=== PATIENT | male | born 1980 | race Hispanic/Latino ===

== ENCOUNTER 2021-11-16 16:54 | Emergency (ER) | payer SELFPAY ==
--- NOTE | 2021-11-16 17:10 | ED.EAR ---
HPI - Ear Problem General Chief complaint: Ear Stated complaint: ear pain Time Seen by Provider: 11/16/21 17:10 Source: patient Mode of arrival: ambulatory Limitations: no limitations History of Present Illness HPI Narrative: Mr. Poon is a 41-year-old male patient presenting to the clinic today with complaints of bilateral ear pain 3 to 4 days He reports his left ear is very tender to palpation and he is having discomfort in the right ear as well. He denies any fever or chills. Related Data Allergies Allergy/AdvReac Type Severity Reaction Status Date / Time No Known Allergies Allergy Verified 11/16/21 17:23 Review of Systems Review of Systems: Pertinent positives per HPI. Patient denies any fever, chills, rash, headache, visual changes, dizziness, cough, runny nose, sore throat, shortness of breath, chest pain, palpitations, nausea, vomiting, diarrhea, constipation, abdominal pain, or any urinary issues. PMFSH Family History Family History Mother Family history of elevated blood lipids Father Family history of elevated blood lipids Social History Social History Smoking status: Never smoker Second hand tobacco smoke exposure: No Alcohol intake: current Comments At the time of my signature, I reviewed and agree with the nursing past medical, surgical, social, and family history. There is no relevant family history pertinent to the patient complaint. Exam Narrative: General: Well-developed, well nourished, in no apparent distress Head: Normocephalic, atraumatic Eyes: Pupils equally round and reactive to light bilaterally, EOM intact, sclera and conjunctive clear, no discharge, lids normal Ears: Right TM intact, red, bulging, unable to visualize left TM due to left ear canal swelling and redness, right ear canals clear, no drainage, grossly hearing normal. Nose: Nares patent, no discharge, no inflammation, no sinus tenderness. Mouth: Oropharynx without lesions or masses, good dentition, MMM. Neck: Supple, trachea midline, no enlargement of anterior or posterior cervical nodes, no thyroid masses or goiter palpable. Cardio: Regular rate and rhythm, s1 and s2 normal, no murmur appreciated. Resp: Clear to auscultation bilaterally anteriorly and posteriorly, no rhonchi, rales, wheezing or rubs Course Course Emergency Course: Portions of this record may have been created with voice recognition software. Level of Care: Express Care Visit Vital Signs Vital signs: Vital signs reviewed Medical Decision Making MDM Narrative Medical decision making narrative: At the time of visit patient is resting comfortably on the exam table. Patient has right otitis media and left otitis externa. I will give him prescription for some ofloxacin eardrops as well as some amoxicillin. Supportive measures were discussed with the patient he voiced understanding of discharge instructions and agrees to treatment plan Differential Diagnosis Differential Diagnosis: Otitis media, otitis externa, eustachian tube dysfunction, otalgia, serous otitis Discharge Plan Discharge Clinical Impression: Acute right otitis media Acute otitis externa of left ear Qualifiers: Otitis externa type: diffuse Qualified Code(s): H60.312 - Diffuse otitis externa, left ear Patient Disposition: Home, Self-Care Condition: Stable Instructions: Antibiotic Form, Swimmer's Ear (ED), Ear Infection (ED) Additional Instructions: Ofloxacin eardrops to the left ear as directed Take amoxicillin as directed May take Tylenol/Motrin as needed for pain May apply heating pad to the left ear to help alleviate some pain Follow-up with your PCP in 3 to 5 days if symptoms persist or sooner if they worsen Prescriptions: New amoxicillin 875 mg tablet 875 mg PO Q12H Qty: 14 0RF ofloxacin 0.3 % drops 5 drp o
[2021-11-16 17:20] VITALS: BP 173/108; PULSE 98; RESP 16; TEMP 36.6; O2SAT 99
== END 2021-11-16 17:32 | disposition home or self-care (01) ==
PROVIDERS: Emergency Provider Nurse Practitioner Family; PCP Family Medicine
DX: H66.91 Otitis media, unspecified, right ear (principal); H60.312 Diffuse otitis externa, left ear
CPT/HCPCS: 99213; G0463

== ENCOUNTER 2022-10-28 13:08 | Emergency (ER) | payer MEDICAID, SELFPAY ==
[2022-10-28] VITALS (7 sets, daily range): BP systolic 127–134; BP diastolic 83–95; PULSE 78–97; RESP 16–20; TEMP 36.6; O2SAT 97–100
--- NOTE | ~2022-10-28 | XR_ITS ---
EXAMINATION: XR ankle RT min 3V DATE: 10/28/2022 15:57 INDICATION: Right ankle pain. TECHNIQUE: Anteroposterior, oblique, mortise, and lateral views of the right ankle were obtained. COMPARISON: None. FINDINGS: Old healed fractures of the distal right tibia with interfragmentary screws and anterior screw fixati on. There is also an old healed fracture at the distal right fibular metadiaphysis which without inte rnal fixation. Alignment remains near-anatomic. No acute fracture. Likely secondary mild osteoarthrit is at the right ankle. Small Achilles and plantar calcaneal spurs. Subcutaneous varicosities at the m edial aspect of the mid right calf. Soft tissues are otherwise unremarkable with no ankle joint effus ion. IMPRESSION: 1. Old healed fractures of the distal right tibia and fibula, the former with internal fixation. No a cute osseous abnormality. 2. Likely secondary mild osteoarthritis at the right ankle. Reviewed, dictated and finalized at location L. IMPRESSION: 1. Old healed fractures of the distal right tibia and fibula, the former with i nternal fixation. No acute osseous abnormality. 2. Likely secondary mild osteoarthritis at the right ankle.
--- NOTE | ~2022-10-28 | CT_ITS ---
EXAMINATION: CT abdomen pelvis w con DATE: 10/28/2022 15:30 INDICATION: Right-sided abdominal pain TECHNIQUE: Computed tomography (CT) of the abdomen and pelvis was performed with 100 mL Omnipaque-350 intravenous contrast. Automated exposure control and iterative reconstruction technique were employe d. The dose-length product was 1554.84 mGy-cm. COMPARISON: None FINDINGS: Lung bases are clear. Heart size is normal. No pericardial or pleural effusion. Mild bilateral gyneco mastia. Liver, gallbladder, spleen, pancreas, bilateral adrenal glands and kidneys are normal. Bowels including the appendix are normal. Bladder is normal. Moderate-sized fat-containing right inguinal h ernia. No free intraperitoneal gas or fluid. No pathologically enlarged abdominal or pelvic lymphaden opathy. Mild lower thoracic spondylosis. IMPRESSION: 1. Normal appendix. No acute intra-abdominal/pelvic process. 2. Moderate-sized fat-containing right inguinal hernia. Reviewed, dictated and finalized at location L.
--- NOTE | ~2022-10-28 | US_ITS ---
EXAMINATION: US venous doppler LE RT DATE: 10/28/2022 15:51 INDICATION: swelling, pain . TECHNIQUE: Grayscale images without and with compression and Doppler images of the right lower extrem ity veins were obtained. COMPARISON: None FINDINGS: The right common femoral vein, profunda (deep) femoral vein, femoral vein, popliteal vein, peroneal v ein, posterior tibial veins, gastrocnemius vein, and greater saphenous vein are patent. IMPRESSION: 1. Patent right lower extremity veins. No evidence of deep venous thrombosis. Reviewed, dictated and finalized at location K.
[2022-10-28 13:31] LABS: Basophils Percent Auto 0.7 % (0.2-1.2); Eosinophils Absolute Auto 0.1 K/mm3 (0-0.3); Eosinophils Percent Auto 1.7 % (0-4.4); Hematocrit 45.8 % (42.0-52.0); Hemoglobin 15.2 g/dL (14.0-18.0); Immature Granulocyte Absolute 0.02 K/mm3 (0.00-0.031); Immature Granulocyte Percent A 0.3 % (0-0.5); Lymphocytes Absolute Auto 2.14 K/mm3 (0.9-3.2); Lymphocytes Percent Auto 36.5 % (18.3-44.2); Mean Corpuscular HGB Conc 33.2 g/dl (32-36); Mean Corpuscular Hemoglobin 29.9 pg (26-34); Mean Corpuscular Volume 90.2 fl (80-100); Mean Platelet Volume 9.4 fl (7.4-10.4); Monocytes Absolute Auto 0.5 K/mm3 (0.1-0.6); Monocytes Percent Auto 8.2 % (2.6-8.5); Neutrophils Absolute Auto 3.1 K/mm3 (1.3-6.7); Neutrophils Percent Auto 52.6 % (45.5-73.1); Platelet Count Result 255 k/mm3 (150-375); Red Blood Count 5.08 M/mm3 (4.6-6.20); Red Cell Distribution Width 12.3 % (11.5-14.5); White Blood Count 5.9 K/mm3 (4.5-10.0)
[2022-10-28 13:43] LABS: Alanine Aminotransferase 58 U/L (6-50); Albumin Level 4.4 g/dL (3.5-5.1); Alkaline Phosphatase 64 U/L (38-126); Anion Gap 4 mmol/L (8-16); Aspartate Amino Transferase 30 U/L (17-59); Bilirubin,Total 0.5 mg/dL (0.2-1.3); Blood Urea Nitrogen 12 mg/dL (9-20); Calcium 9.3 mg/dL (8.4-10.2); Carbon Dioxide 28 mmol/L (22-30); Chloride 102 mmol/L (98-107); Estimated Glomerular Filt Rate > 60; Glucose 115 mg/dL (65-110); Lipase 94 U/L (23-300); Sodium 134 mmol/L (137-145)
[2022-10-28 13:46] LABS: Appearance Urine Clear (Clear); Bilirubin Urine Negative (Negative); Blood Urine Negative (Negative); Color Urine Yellow (Yellow); Glucose Urine UA Negative (Negative); Ketones Urine Negative (Negative); Leukocyte Esterase Ur Negative LEU/UL (Negative); Nitrate Urine Negative (Negative); Protein Urine Negative (Negative); Specific Grav Ur 1.022 (1.001-1.035); Urobilinogen Urine 0.2 mg/dL (<2.0); pH Urine 5.5 (5.0-9.0)
[2022-10-28 13:48] LABS: Add Urine Microscopic? NO
--- NOTE | 2022-10-28 15:25 | ED.ABDPAIN ---
HPI - Abdominal Pain General Chief Complaint: Abdominal Pain Stated Complaint: abdominal pain Time Seen by Provider: 10/28/22 14:48 Source: patient Mode of arrival: ambulatory Limitations: no limitations History of Present Illness HPI narrative: This is a 42 year old male that presents to the ER for abdominal pain present over the last couple of days. Reports achy right sided abdominal pain. Worse when he goes to bed at night. Denies nausea, vomiting, diarrhea, dysuria or hematuria. Additionally reporting some right ankle pain. Previously having a fracture in that ankle which was surgically repaired. He has noticed worsening swelling in the lower leg as well. Denies chest pain or shortness of breath. Related Data Allergies Allergy/AdvReac Type Severity Reaction Status Date / Time No Known Allergies Allergy Verified 11/16/21 17:23 Review of Systems Review of Systems: CONSTITUTIONAL: Denies fever CARDIOVASCULAR: Reports edema. Denies chest pain RESPIRATORY: Denies dyspnea. GASTROINTESTINAL: Reports abdominal pain. Denies nausea, vomiting, or diarrhea. GENITOURINARY: Denies dysuria or hematuria. MUSCULOSKELETAL: Reports joint pain, and myalgia. All systems reviewed & are unremarkable except as noted in HPI and below PMFSH Past Medical History Medical History (Updated 10/28/22 @ 16:36 by Yusra Rudd PA-C) History of hypertension Family History Family History Mother Family history of elevated blood lipids Father Family history of elevated blood lipids Social History Social History Smoking status: Never smoker Second hand tobacco smoke exposure: No Alcohol intake: current Exam Narrative: GENERAL: Well-appearing, well-nourished, and in no acute distress. HEAD: Normocephalic, atraumatic. EYES: EOMI. CHEST: Clear to auscultation. No respiratory distress. No wheezes rales or rhonchi HEART: Regular rate and rhythm. No murmur heard. Normal peripheral pulses. ABDOMEN: Soft, nondistended, normal active bowel sounds. Tender to palpation throughout the right side of the abdomen, without guarding EXTREMITIES: Normal range of motion. Mild edema to the right ankle and lower leg with large scar noted over the tibia. Normal DP pulse. Normal sensation SKIN: Warm, dry, no rash. NEURO: No focal deficits. Alert and oriented x3. PSYCH: Normal mood and affect Course Course Emergency Course: Patient and family updated on work-up and agree with plan of care Vital Signs Vital signs: Vital Signs Temperature 97.9 F 10/28/22 13:10 Pulse Rate 97 10/28/22 13:10 Respiratory Rate 18 10/28/22 13:10 Blood Pressure 134/95 H 10/28/22 13:10 Pulse Oximetry 100 10/28/22 13:10 Oxygen Delivery Room Air 10/28/22 13:10 Temperature 97.8 F 10/28/22 14:51 Pulse Rate 86 10/28/22 16:00 Respiratory Rate 19 10/28/22 16:00 Blood Pressure 127/83 10/28/22 14:51 Pulse Oximetry 98 10/28/22 16:00 Oxygen Delivery Room Air 10/28/22 13:10 MDM - Abdominal Pain MDM Narrative Medical decision making narrative: Patient presents to the ER for right sided abdominal pain as well as right ankle pain. Patient is afebrile and nontoxic-appearing. His vitals are stable. CBC without leukocytosis. Metabolic panel and lipase without concerning findings. UA without evidence of infection. CT scan of the abdomen and pelvis is without acute intra-abdominal/pelvic process. Does show a moderate-sized fat-containing right inguinal hernia. Right lower extremity venous Doppler without evidence of DVT. Ankle x-ray shows old healed fractures and mild osteoarthritis. No acute osseous abnormality. Patient and family updated on work-up and agree with plan of care. He is to follow-up with orthopedics for his ankle as well as general surgery for his inguinal hernia. He was given warnings to retu
== END 2022-10-28 16:47 | disposition home or self-care (01) ==
PROVIDERS: Emergency Medicine; Emergency Provider Physician Assistant; PCP Family Medicine
DX: K40.90 Unilateral inguinal hernia, without obstruction or gangrene, not specified as recurrent (principal); M25.571 Pain in right ankle and joints of right foot; R10.31 Right lower quadrant pain; I10 Essential (primary) hypertension
CPT/HCPCS: 36415; 73610; 74177; 80053; 81003; 83690; 85025; 93971; 99284; Q9967

== ENCOUNTER 2022-11-14 09:34 | Outpatient (CLI) | payer MEDICAID, SELFPAY ==
--- NOTE | 2022-11-14 10:23 | ECG_ITS ---
Measurements Intervals [place] Rate: 66 P: 24 SD: 152 QRS: 3 QRSD: 93 T: 9 QT: 381 QTc: 402 Interpretive Statements SINUS RHYTHM VOLTAGE CRITERIA FOR LVH [MEETS CRITERIA IN ONE OF: R(aVL), S(V1), R(V5), R(V5/V6)+S(V1)] BORDERLINE ECG NO PREVIOUS ECG AVAILABLE FOR COMPARISON Electronically Signed On 11-14-2022 15:59:00 CDT by Ariel Villaseñor M.D.
== END 2022-11-14 09:35 | disposition home or self-care (01) ==
LOC: ANHSURGERY 09:39
PROVIDERS: PCP Physician Assistant; Visit Provider Surgery
DX: K46.9 Unspecified abdominal hernia without obstruction or gangrene (principal); I10 Essential (primary) hypertension; Z01.818 Encounter for other preprocedural examination; R94.31 Abnormal electrocardiogram [ECG] [EKG]
CPT/HCPCS: 36415; 86850; 86900; 86901; 93005

== ENCOUNTER 2022-11-19 01:36 | Day surgery (SDC) | payer MEDICAID, SELFPAY ==
[2022-11-11 15:07] VITALS: BMI 36.3
--- NOTE | 2022-11-11 15:18 | PC.NURSE ---
Report to the Outpatient Waiting Room, entrance under the green pavilion located off [facility], at 1300 on 11/19/22. Planned Procedure Time: 1500 Time changes happen often and if your time is changed the preop area will call you the afternoon before. - You and your visitor will be asked to self-screen and do not enter if you have any COVID symptoms. - A mask is optional within the hospital at this time. Patients may have clear liquids (water, carbonated beverages, clear teas, apple juice) until 3 hours prior to surgery with a maximum of 20 ounces. - No food from midnight until time of surgery Take the following medications with a SIP of water the morning of surgery: pain medication if needed DO NOT STOP ANY OF YOUR OTHER PRESCRIPTION MEDICATIONS PRIOR TO SURGERY ?EXCEPT THE FOLLOWING Medications to discontinue per physician n/a Date to take last dose Please no make-up, nail monegasque, hairspray, perfume, deodorant, or body powder the day of surgery. No jewelry (including any body piercings) or valuables the day of surgery, leave them at home. Please take a shower the morning of surgery with Hibiclens. Wear comfortable, loose fitting clothing. - Jewelry must be removed prior to entering the operating room. Rings and piercings that are not removed may be cut off. - The hospital will not accept responsibility for valuables. - Please leave all valuables, including medications, at home the day of surgery. If you are going home after surgery, a licensed crew car driver must drive you home. - NO public transportation without another adult if you receive anesthesia. - We recommend that an adult stay with you for 24 hours following discharge. - We also recommend that you do not drive, make important decision, drink alcoholic beverages, or take any drugs that were not prescribed by your health care provider for at least 24 hours after your discharge time. Follow any additional instructions given to you from your surgeon. If you or anyone in your household have experienced Covid symptoms in the past week, please notify your surgeon or the nurse liaison at the phone number below for possible testing. Telephone instructions given to patient and asked if any additional questions and then verbalized understanding. Patient advised to call surgeon office or pre surgery nurse liaison [phone] if any additional questions.
--- NOTE | 2022-11-14 10:33 | PC.NURSE ---
PAT INTERVIEW TO UTILIZE DIET CONSULTANT TO SIGN CONSENTS & REVIEW PRE-OP INSTRUCTIONS. PT AND RELAY UNDERSTANDING. PRE-OP TESTING COMPLETED. - [id number]
[2022-11-19] VITALS (9 sets, daily range): BP systolic 121–146; BP diastolic 80–99; PULSE 69–84; RESP 12–14; TEMP 36.4–36.6; O2SAT 98–100
--- NOTE | 2022-11-19 13:58 | WPDHPUPDATE1 ---
History and Physical Update Update Date/Time: 11/19/22 13:58 History and Physical has been reviewed, including an updated exam of the patient. There are NO changes in the patient's condition. Risks, benefits, and alternatives have been discussed and questions answered. Patient agrees to proceed with procedure.
[2022-11-19] MEDS: ACETAMINOPHEN 500 MG TABLET 1000 MG PO (14:05)
[2022-11-19] MEDS: KETOROLAC 15 MG/ML VIAL (*BKC) IV PUSH (14:05)
[2022-11-19] MEDS: LACTATED RINGERS 1,000 ML 30 ML IV CONT ×2 (14:05→16:00)
--- NOTE | 2022-11-19 14:37 | WPDANESEPPF ---
Anes - Initial Pre Proc Eval Procedure: Operation Date: 11/19/22 15:00 Proposed Procedures p Laparoscopic Right Inguinal Hernia Repair with Mesh, Davinci Assisted - Doug Rosales DO Date/Time: 11/19/22 14:37 Surgeon: Doug Rosales DO Pre Op Diagnosis: Right Inguinal Hernia Patient Data Age: 42 Gender: M Height: 1.83 m Weight: 117.8 kg Allergies Allergy/AdvReac Type Severity Reaction Status Date / Time No Known Allergies Allergy Verified 11/11/22 15:05 Home Medications Medication Instructions Recorded Confirmed Type lisinopril 20 mg tablet 20 mg PO DAILY 11/10/22 11/11/22 History tramadol 50 mg tablet 50 mg PO Q4H PRN pain #20 tabs 11/10/22 11/11/22 Rx Patient hx anesthesia problems: none Family hx anesthesia problems: none Results Review: All pre-operative results and documents have been reviewed as part of the pre-operative evaluation. [facility] Past Medical History Medical History (Updated 11/10/22 @ 10:27 by Valeria Mehta) History of diabetes mellitus Hypertension Surgical History Surgical History (Updated 11/10/22 @ 10:03 by Maria L Tinoco) History of ankle surgery 2020 Family History Family History Mother Family history of elevated blood lipids Father Family history of elevated blood lipids Social History Social History (Updated 11/19/22 @ 14:37 by Michael Lemos DO) Smoking status: Never smoker Second hand tobacco smoke exposure: No Alcohol intake: current Drinks per week: 7 Alcohol use details: 4 beers, 3 days/week Substance use: never Living arrangements: with family Spiritual care concerns: No Anes - Eval Final PreProcedure Day of Procedure 11/19/22 14:37 Patient weight: obese Heart: regular rate and rhythm Lungs: clear to auscultation Airway: Mallampati scale class II Neurological: alert and oriented Last oral intake: >/= 8 hours ASA classification: III Emergent: no Anesthetic plan: proceed Anesthesia type and monitoring: general ETT and standard monitoring Results Review: All pre-operative results and documents have been reviewed as part of the pre-operative evaluation. Informed Consent: The patient's anesthetic plan and its attendant risks and benefits were discussed with the patient/family/POA. Questions were solicited and answers provided to the satisfaction of the patient/family/POA.
[2022-11-19] MEDS: ceFAZolin 3 GM/D5W 100 ML 100 ML IVPB (14:45)
[2022-11-19] MEDS: BUPIVACAINE/EPINEPHRINE 0.5% 50 ML VIAL 30 ML INFILTRATE (15:20)
--- NOTE | 2022-11-19 16:12 | W.PM.PROC2 ---
Procedure Note - Detailed Date of Procedure 11/19/22 Pre-op Diagnosis Right Inguinal Hernia Post-op Diagnosis Same (Indirect RIH) Procedure Performed Laparoscopic right inguinal hernia repair with mesh, da Kristin assisted Surgeon Doug Rosales, DO Anesthesia General and Local (0.5% bupivacaine with epinephrine) Indications This is a 42-year-old man who presented with right groin pain that started within the past few weeks. He presented to the emergency department with worsening pain and a CT of his abdomen and pelvis was performed. This showed evidence of a fat containing moderate-sized right inguinal hernia. He then followed up in the office and discussions were made with the patient about treatment options. Decision was made to proceed with laparoscopic right inguinal hernia repair with mesh, da Kristin assisted. Findings Laparoscopic right inguinal hernia repair was performed. The patient was found to have a an indirect right inguinal hernia. No other significant abnormalities were noted. A robotic transabdominal preperitoneal approach was utilized for repair. Once a wide enough preperitoneal pocket was created, I then placed a large right 3DMax mid mesh overlying the entire right myopectineal orifice. Description of Procedure Procedure as well as risks, benefits, and alternatives were discussed with the patient. Written consent was obtained and placed in chart prior to procedure. Patient was brought back to surgical suite. He was placed supine on operating table. Time-out was done to confirm patient and procedure. He was then intubated by Anesthesia Department. His abdomen was prepped and draped in sterile fashion using chlorhexidine prep. 0.5% bupivacaine with epinephrine was infiltrated at each location for incision. An 8 mm incision was made in the left lateral abdomen, and a 5 mm Optiview trocar was advanced through the abdominal layers under direct visualization. Once inside the abdominal cavity, carbon dioxide insufflation was used to create a pneumoperitoneum. A camera was inserted and the abdominal cavity was inspected. The patient was placed in slight Trendelenburg position. An 8 millimeter incision was made on the right lateral abdomen and an 8 millimeter trocar was inserted under direct visualization. Another 8 millimeter incision was made just superior to the umbilicus and an 8 millimeter trocar was inserted under direct visualization. The 5 mm port was then removed and this was replaced with another 8 mm robotic port. The robotic arms were brought up to the patient's bedside and secured to the ports. The camera and instruments were inserted. I then moved over to the robotic console and took control of the camera and instruments. After careful inspection of the abdominal cavity, I began scoring the peritoneum along the right lower quadrant using scissors with electrocautery. The preperitoneal plane was entered and this was carefully dissected caudally along the inferior epigastric vessels. Careful dissection with scissors with electrocautery and blunt dissection was used to continue this dissection. I dissected far enough laterally to allow for mesh placement, and also dissected medially to identify the pubic arch and Lázaro's ligament. The hernia sac was identified and carefully dissected posteriorly. The cord contents were also identified and the peritoneum was carefully dissected far enough posteriorly to allow for mesh placement. Once an adequate pocket was created, I then placed the mesh within the preperitoneal pocket and carefully unfolded it. The mesh was centered on the hernia defect with adequate overlap circumferentially. The inferior edge of the mesh was inspected to ensure that it was far enough away from the peritoneal edge. The mesh appeared in proper position overlying the entire myopectineal orifice. The mesh was secured using 3-0 Vicryl simple interrupted sutures in Lázaro's ligament, the superior medial edg
[2022-11-19] MEDS: fentaNYL CITRATE INJ (*CRX) 100 MCG/2 ML VIAL 25 MCG IV PUSH ×6 (16:27→16:50)
[2022-11-19] MEDS: oxyCODONE HCL (*CRX) 5 MG TAB IR PO (17:22)
== END 2022-11-19 18:25 | disposition home or self-care (01) ==
PROVIDERS: PCP Physician Assistant; Visit Provider Surgery
PROC: 8E0Y4CZ Robotic Assisted Procedure of Lower Extremity, Percutaneous Endoscopic Approach (ICD-10-PCS; CPT 49650; principal; 2022-11-19 15:00)
DX: K40.90 Unilateral inguinal hernia, without obstruction or gangrene, not specified as recurrent (principal); I10 Essential (primary) hypertension; E66.9 Obesity, unspecified; Z68.35 Body mass index [BMI] 35.0-35.9, adult
CPT/HCPCS: 49650; S2900; A9270; C1781; J0690; J1100; J1885; J2250; J2405; J2704; J3010; J7120

== ENCOUNTER 2024-09-28 08:23 | Outpatient (CLI) | payer SELFPAY ==
--- NOTE | ~2024-09-28 | XR_ITS ---
Cervical Spine: AP, lateral, open-mouth views Clinical History: Pain Findings: The normal lordotic curve is maintained. The vertebral bodies and posterior elements appea r intact. The intervertebral disc spaces are well maintained. Pre-vertebral soft tissues are unremar kable. Impression: No significant abnormality is seen. Reviewed, dictated and finalized at [facility]. Impression: No significant abnormality is seen.
--- OUTSIDE RECORDS SUMMARY | 2024-09-28 08:34 | XMS_ITS | Patient Health Record ---
Author Organization [facility] Address [address] [place], [place] [id number] Care Team Providers Care Health Sciences Program Coordinator Name Role Phone Doug Collier Unavailable [phone] Reason For Referral No Information Immunizations Vaccine Route Administration Date Status Comme nts Influenza Unknown 04/01/2016 Refused Plan Of Treatment No Information Insurance Providers Payer Name Payer Address Payer Phone Subscriber Number Group Number Insured Name Patient Relationship to Insured Coverage Start Date Coverage End Date [employer] [address] [place], [place] [id number] Mich Leach Self - patient is the insured
--- OUTSIDE RECORDS SUMMARY | 2024-09-28 08:34 | XMS_ITS | Data Portability ---
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 I agree with the exam findings, assessment and plan except where specifically documented or amended. -Pastora David, [facility], PAOlvin [email or web address] Not available 08/05/2023 09:15:57 09/27/2024 09/27/2024 Follow up with Pastora as PCP is I will be leaving [facility] Not available 09/27/2024 14:14:03 Plan of Treatment Reminders Order Date Submit Date Provider Last Modified By Organization Details Last Modified Time Details Appointments ANY 15 2024 08:00A M DELANEY MCDANIEL Not available Not available Not available Lab noninvasi ve colorecta l cancer DNA + occult blood screening , QL, stool 2024 025 [facility] (Cologuard Orders Only), [address], [address], [facility] [place] [place], [address], 09/27/2024 09:51:25 CMP, serum or plasma 2024 025 RENARD [facility], [address], [address], [place], [address], 09/28/2024 08:28:41 CBC w/ auto diff 2024 025 RENARD [facility], [address], [place], [address], 09/28/2024 08:28:42 lipid panel, serum 2024 025 RENARD [facility], [address], [place], [address], 09/28/2024 08:28:40 albumin/c reatinine , mass ratio, urine 2024 025 tuan [facility], [address], [place], [address], 09/27/2024 09:51:25 HbA1c (hemoglob in A1c), blood 2024 025 tuan [facility], [address], [place], [address], 09/27/2024 09:51:25 CMP, serum or plasma 2023 024 RENARD [facility], [address], [place], [address], 08/06/2023 10:15:44 lipid panel, serum 2023 024 RENARD [facility], [address], [place], [address], 08/06/2023 10:15:43 CBC w/ auto diff 2023 024 RENARD [facility], [address], [place], [address], 08/06/2023 10:15:45 TSH + free T4, serum 2023 024 RENARD [facility], [address], [place], [address], 08/06/2023 11:15:18 HbA1c (hemoglob in A1c), blood 2023 024 WILMOT [facility], [address], [place], [address], 08/06/2023 11:15:19 chlamydia trachomat is + neisseria gonorrhoe ae + trichomon as vaginalis DNA panel, MINA+probe , unspecifi ed specimen 2022 023 WILMOT [facility], [address], [place], [address], 08/11/2022 20:09:20 CMP, serum or plasma 2021 022 [facility], [address], [place], [address], 03/12/2022 21:07:36 lipid panel, serum 2021 022 [facility], [address], [place], [address], 03/12/2022 21:07:35 CBC w/ auto diff 2021 022 [facility], [address], [place], [address], 03/12/2022 21:07:36 TSH + free T4, serum 2021 [facility], [address], [place], [address], 03/13/2022 08:21:42 HbA1c (hemoglob in A1c), blood 2021 022 [facility], [address], [place], [address], 03/13/2022 08:21:43 Referral urologist referral 2023 024 Todd Lyon MD, [address], [place], [address], 12/16/2023 07:57:42 physical therapist referral 2023 024 [email or web address] [facility], [address], [address], [place], [address], 09/22/2023 12:35:27 physical therapist referral 2022 023 [facility], [address] [place], [address], 08/26/2022 14:04:33 urologist referral 2022 023 [email or web address] Todd Lyon MD, [address], [place], [address], 09/18/2022 10:58:15 Procedures None recorded. Surgeries None recorded. Imaging XR, cervical spine, 2 or 3 view [address], [address] [place] [address], [place], [address], 09/27/2024 14:49:41 Medication Orders lisinopri l 20 mg tablet [email or web address] [facility] [address] [facility], [address] [facility], [place], [address], 09/27/2024 09:51:25 acetamino phen 500 mg tablet 2023 024 [facility], [address] [facility], [place], [address], 12/02/2023 09:20:49 sildenafi l 50 mg tablet 2023 024 [facility], [address] [place] [address], [address], 08/05/2023 09:29:21 lisinopri l 20 mg tablet 2023 024 [facility], [address] [place] [address], [address], 08/05/2023 12:42:37 hydrocort isone 1 % topical ointment 2023 024 [facility], [address] [place] [address], [address], 12/02/2023 09:22:38 acetamino phen 500 mg tablet 2022 024 [facility], [address] [place] [address], [address], 08/05/2023 08:25:11 clotrimaz ole 1 % topical cream 2022 023 [place] [address], [address] [place] [address], [address], 08/05/2023 08:24:38 lisinopri l 20 mg tablet 2022 023 [place] [address], [address] [place] [address], [place], [address], 08/07/2022 14:03:59 sildenafi l 50 mg tablet 2021 022 [facility], [address] [place] [address], [address], 08/05/2023 08:24:51 amoxicill in 875 mg tablet 2021 022 [facility], [address] [place] [address], [address], 08/07/2022 12:25:51 lisinopri l 20 mg tablet 2021 022 [facility], [address] [place] [address], [address], 03/12/2022 14:49:47 Patient TargetsNo targets recorded. Patient Instructions Encounter Date Encounter Id Patient Instructions Last Modified By Organization Details Last Modified Time 03/12/2022 [id number] A healthy lifestyle: care instructions [email or web address] Not available 03/12/2022 14:50:28 08/07/2022 [id number] A healthy lifestyle: care instructions [email or web address] Not available 08/07/2022 14:03:59 08/05/2023 [id number] A healthy lifestyle: care instructions [email or web address] Not available 08/05/2023 09:24:40 12/02/2023 [id number] tennis elbow: care instructions [email or web address] Not available 12/03/2023 14:43:36 09/27/2024 [id number] A healthy lifestyle: care instructions Not available 09/27/2024 09:51:25 Reason for Referral Urologist Referral for Circu mcision requested Referring Physician: Pastora [facility] Shae, Encounter Date: 08/07/2022 Physical Therapist Referral for Chronic ankle pain chronic right ankle pain, plates and screws from injury 4 yrs ago Referring Physician: Family Shae Ramirez, Encounter Date: 08/07/2022 Physical Therapist Referral for Chronic ankle pain Referring Physician: Family Shae Ramirez, Encounter Date: 08/05/2023 Urologist Referral for Edda itis Referring Physician: Pastora [facility] Shae, Encounter Date: 12/02/2023 Results Created Date Observation Date Name Description Value Unit Range Abnormal Flag Note LastModifiedBy Organization Detail LastModifiedTime 03/12/2003/12/2022 LIPID PANEL WITH LDL/H DL RATIO cholesterol, total 190.9 mg/dL 140.0- 200.0 Not Available [facility] [address] [place], [address], 03/12/2022 21:07:35 03/12/20 22 03/12/2022 LIPID PANEL WITH LDL/H DL RATIO triglyceride s 175 mg/dL <=150 above high normal Not Available [facility] [address] [place], [address], 03/12/2022 21:07:35 03/12/20 22 03/12/2022 LIPID PANEL WITH LDL/H DL RATIO HDL cholesterol 39.4 mg/dL 40.0-1 00.0 below low normal Not Available [facility] [address] [place], [address], 03/12/2022 21:07:35 03/12/20 22 03/12/2022 LIPID PANEL WITH LDL/H DL RATIO VLDL cholesterol neelam 35.00 mg/dL 5.00-4 0.00 Not Available [facility] [address] [place], [address], 03/12/2022 21:07:35 03/12/20 22 03/12/2022 LIPID PANEL WITH LDL/H DL RATIO LDL chol calc ([facility]) 120.4 Not Available [facility] [address] [place], [address], 03/12/2022 21:07:35 03/12/20 22 03/12/2022 LIPID PANEL WITH LDL/H DL RATIO LDL/HDL ratio 3.1 Not Available [facility] [address] [place], [address], 03/12/2022 21:07:35 03/12/20 22 03/12/2022 COMP. METAB OLIC PANEL (14) glucose 111 mg/dL 65-99 above high normal ANION GP 15.0 mmol/ L N OSMOL 280.0 mOsM/ L N REFER ENCE RANGE : 275.0 -301. 0 Not Available [facility] [address] [place], [address], 03/12/2022 21:07:36 03/12/20 22 03/12/2022 COMP. METAB OLIC PANEL (14) BUN 16 mg/dL 8-26 Not Available [facility] [address] [place], [address], 03/12/2022 21:07:36 03/12/20 22 03/12/2022 COMP. METAB OLIC PANEL (14) creatinine 0.75 mg/dL 0.50-1 .40 Not Available [facility] [address] [place], [address], 03/12/2022 21:07:36 03/12/20 22 03/12/2022 COMP. METAB OLIC PANEL (14) eGFR 116 mL/mi n/1.7 3 >=60 Not Available [facility] [address] [place], [address], 03/12/2022 21:07:36 03/12/20 22 03/12/2022 COMP. METAB OLIC PANEL (14) BUN/creatini ne ratio 21.7 Not Available [facility] [address] [place], [address], 03/12/2022 21:07:36 03/12/20 22 03/12/2022 COMP. METAB OLIC PANEL (14) sodium 139.0 mmol/ L 136.0- 144.0 Not Available [facility] [address] [place] [address], [address], 03/12/2022 21:07:36 03/12/20 22 03/12/2022 COMP. METAB OLIC PANEL (14) potassium 4.0 mmol/ L 3.5-5. 3 Not Available [facility] [address] [place] [address], [address], 03/12/2022 21:07:36 03/12/20 22 03/12/2022 COMP. METAB OLIC PANEL (14) chloride 102 mmol/ l 101-11 1 Not Available [facility] [address] [place], [address], 03/12/2022 21:07:36 03/12/20 22 03/12/2022 COMP. METAB OLIC PANEL (14) carbon dioxide, total 26.5 mmol/ L 21.0-3 2.0 Not Available [facility] [address] [place] [address], [address], 03/12/2022 21:07:36 03/12/20 22 03/12/2022 COMP. METAB OLIC PANEL (14) calcium 9.9 mg/dL 8.2-10 .0 Not Available [facility] [address] [place] [address], [address], 03/12/2022 21:07:36 03/12/20 22 03/12/2022 COMP. METAB OLIC PANEL (14) protein, total 7.8 g/dL 6.7-8. 2 Not Available [facility] [address] [place], [address], 03/12/2022 21:07:36 03/12/20 22 03/12/2022 COMP. METAB OLIC PANEL (14) albumin 4.9 g/dL 3.5-5. 5 Not Available [facility] [address] [place] [address], [address], 03/12/2022 21:07:36 03/12/20 22 03/12/2022 COMP. METAB OLIC PANEL (14) globulin, total 2.9 g/dL 1.5-4. 5 Not Available [facility] [address] [place] [address], [address], 03/12/2022 21:07:36 03/12/20 22 03/12/2022 COMP. METAB OLIC PANEL (14) A/G ratio 1.7 Not Available [facility] [address] [place] [address], [address], 03/12/2022 21:07:36 03/12/20 22 03/12/2022 COMP. METAB OLIC PANEL (14) bilirubin, total 0.4 mg/dL 0.0-1. 2 Not Available [facility] [address] [place] [address], [address], 03/12/2022 21:07:36 03/12/20 22 03/12/2022 COMP. METAB OLIC PANEL (14) alkaline phosphatase 77.0 IU/L 42.0-1 21.0 Not Available [facility] [address] [place], [address], 03/12/2022 21:07:36 03/12/20 22 03/12/2022 COMP. METAB OLIC PANEL (14) AST (SGOT) 13.9 U/L 10.0-4 2.0 Not Available [facility] [address] [place], [address], 03/12/2022 21:07:36 03/12/20 22 03/12/2022 COMP. METAB OLIC PANEL (14) ALT (SGPT) 31.8 U/L 10.0-6 0.0 Not Available [facility] [address] [place], [address], 03/12/2022 21:07:36 03/12/20 22 03/12/2022 CBC WITH DIFFE RENTI AL/PL ATELE T WBC 9.2 K/uL 3.4-10 .8 Not Available [facility] [address] [place], [address], 03/12/2022 21:07:36 03/12/20 22 03/12/2022 CBC WITH DIFFE RENTI AL/PL ATELE T RBC 5.1 M/uL 4.5-6. 3 Not Available [facility] [address] [place], [address], 03/12/2022 21:07:36 03/12/20 22 03/12/2022 CBC WITH DIFFE RENTI AL/PL ATELE T hemoglobin 15.1 g/dL 13.5-1 7.5 Not Available [facility] [address] [place], [address], 03/12/2022 21:07:36 03/12/20 22 03/12/2022 CBC WITH DIFFE RENTI AL/PL ATELE T hematocrit 45.7 % 40.0-5 2.0 Not Available [facility] [address] [place], [address], 03/12/2022 21:07:36 03/12/20 22 03/12/2022 CBC WITH DIFFE RENTI AL/PL ATELE T MCV 89 fL 80-95 Not Available [facility] [address] [place], [address], 03/12/2022 21:07:36 03/12/20 22 03/12/2022 CBC WITH DIFFE RENTI AL/PL ATELE T MCH 30 pg 27-32 Not Available [facility] [address] [place], [address], 03/12/2022 21:07:36 03/12/20 22 03/12/2022 CBC WITH DIFFE RENTI AL/PL ATELE T MCHC 33 g/dL 32-36 Not Available [facility] [address] [place], [address], 03/12/2022 21:07:36 03/12/20 22 03/12/2022 CBC WITH DIFFE RENTI AL/PL ATELE T RDW 12.4 % 11.5-1 4.5 Not Available [facility] [address] [place], [address], 03/12/2022 21:07:36 03/12/20 22 03/12/2022 CBC WITH DIFFE RENTI AL/PL ATELE T platelets 280 K/uL 155-37 9 MPV 9.8 FL 8.9-1 2.7 N Not Available [facility] [address] [place], [address], 03/12/2022 21:07:36 03/12/20 22 03/12/2022 CBC WITH DIFFE RENTI AL/PL ATELE T neutrophils 64.6 % 40.0-7 4.0 Not Available [facility] [address] [place], [address], 03/12/2022 21:07:36 03/12/20 22 03/12/2022 CBC WITH DIFFE RENTI AL/PL ATELE T lymphs 20.6 % 14.0-4 6.0 Not Available [facility] [address] [place], [address], 03/12/2022 21:07:36 03/12/20 22 03/12/2022 CBC WITH DIFFE RENTI AL/PL ATELE T monocytes 11.2 % 4.0-12 .0 Not Available [facility] [address] [place], [address], 03/12/2022 21:07:36 03/12/20 22 03/12/2022 CBC WITH DIFFE RENTI AL/PL ATELE T eos 2 % 0-5 Not Available [facility] [address] [place], [address], 03/12/2022 21:07:36 03/12/20 22 03/12/2022 CBC WITH DIFFE RENTI AL/PL ATELE T basos 0.5 % 0.0-1. 0 Not Available [facility] [address] [place], [address], 03/12/2022 21:07:36 03/12/20 22 03/12/2022 CBC WITH DIFFE RENTI AL/PL ATELE T neutrophils (absolute) 5.9 K/uL 1.4-7. 0 Not Available [facility] [address] [place], [address], 03/12/2022 21:07:36 03/12/20 22 03/12/2022 CBC WITH DIFFE RENTI AL/PL ATELE T lymphs (absolute) 1.9 K/uL 0.7-3. 1 Not Available [facility] [address] [place], [address], 03/12/2022 21:07:36 03/12/20 22 03/12/2022 CBC WITH DIFFE RENTI AL/PL ATELE T monocytes(ab solute) 1.0 K/uL 0.1-0. 9 above high normal Not Available [facility] [address] [place], [address], 03/12/2022 21:07:36 03/12/20 22 03/12/2022 CBC WITH DIFFE RENTI AL/PL ATELE T eos (absolute) 0.2 K/uL 0.0-0. 4 Not Available [facility] [address] [place], [address], 03/12/2022 21:07:36 03/12/20 22 03/12/2022 CBC WITH DIFFE RENTI AL/PL ATELE T baso (absolute) 0.1 K/uL 0.0-0. 3 Not Available [facility] [address] [place], [address], 03/12/2022 21:07:36 03/12/20 22 03/12/2022 CBC WITH DIFFE RENTI AL/PL ATELE T immature granulocytes 1.5 % Not Available [facility] [address] [place], [address], 03/12/2022 21:07:36 03/12/20 22 03/12/2022 CBC WITH DIFFE RENTI AL/PL ATELE T immature grans (abs) 0.1 K/uL Not Available [facility] [address] [place], [address], 03/12/2022 21:07:36 03/12/20 22 03/12/2022 CBC WITH DIFFE RENTI AL/PL ATELE T NRBC 0 % Not Available [facility] [address] [place], [address], 03/12/2022 21:07:36 03/12/20 22 03/13/2022 TSH+F REE T4 TSH 1.160 uIU/m L 0.450- 4.500 Not Available [facility] ([facility]) [address] [facility], [place], [address], 03/13/2022 08:21:42 03/12/20 22 03/13/2022 TSH+F REE T4 T4,free(dire ct) 1.17 NG/dL 0.82-1 .77 Not Available [facility] ([facility]) [address] [place], [address], 03/13/2022 08:21:42 03/12/20 22 03/13/2022 HEMOG LOBIN A1C hemoglobin A1C 5.8 % 4.8-5. 6 above high normal Predi abete s: 5.7 - 6.4 Diabe fatmata: >6.4 Glyce devorah contr ol for adult s with diabe fatmata: <7.0 Not Available [facility] ([facility]) [address] [place], [address], 03/13/2022 08:21:43 08/08/19 23 08/11/2022 CT, NG, TRICH VAG BY MINA chlamydia by MINA Negati ve negati ve Not Available [facility] ([facility]) [address] [place], [address], 08/11/2022 20:09:20 08/08/19 23 08/11/2022 CT, NG, TRICH VAG BY MINA gonococcus by MINA Negati ve negati ve Not Available [facility] ([facility]) [address] [place], [address], 08/11/2022 20:09:20 08/08/19 23 08/11/2022 CT, NG, TRICH VAG BY MINA trich vag by MINA Negati ve negati ve Not Available [facility] ([facility]) [address] [place], [address], 08/11/2022 20:09:20 08/05/19 24 08/06/2023 LIPID PANEL WITH LDL/H DL RATIO cholesterol, total 176 mg/dL 100-19 9 Not Available [facility] ([facility]) [address] [place], [address], 08/06/2023 10:15:43 08/05/19 24 08/06/2023 LIPID PANEL WITH LDL/H DL RATIO triglyceride s 178 mg/dL 0-149 above high normal Not Available [facility] ([facility]) [address] [place], [address], 08/06/2023 10:15:43 08/05/19 24 08/06/2023 LIPID PANEL WITH LDL/H DL RATIO HDL cholesterol 34 mg/dL >39 below low normal Not Available [facility] ([facility]) [address] [place], [address], 08/06/2023 10:15:43 08/05/19 24 08/06/2023 LIPID PANEL WITH LDL/H DL RATIO VLDL cholesterol neelam 31 mg/dL 5-40 Not Available [facility] ([facility]) [address] [place], [address], 08/06/2023 10:15:43 08/05/19 24 08/06/2023 LIPID PANEL WITH LDL/H DL RATIO LDL chol calc ([facility]) 111 mg/dL 0-99 above high normal Not Available [facility] ([facility]) [address] [place], [address], 08/06/2023 10:15:43 08/05/19 24 08/06/2023 LIPID PANEL WITH LDL/H DL RATIO LDL/HDL ratio 3.3 ratio 0.0-3. 6 LDL/H DL Ratio Men Women 1/2 Avg.R isk 1.0 1.5 Avg.R isk 3.6 3.2 2X Avg.R isk 6.2 5.0 3X Avg.R isk 8.0 6.1 Not Available [facility] ([facility]) [address] [place], [address], 08/06/2023 10:15:43 08/05/19 24 08/06/2023 COMP. METAB OLIC PANEL (14) glucose 143 mg/dL 70-99 above high normal Not Available [facility] ([facility]) [address] [place], [address], 08/06/2023 10:15:44 08/05/19 24 08/06/2023 COMP. METAB OLIC PANEL (14) BUN 13 mg/dL 6-24 Not Available [facility] ([facility]) [address] [place], [address], 08/06/2023 10:15:44 08/05/19 24 08/06/2023 COMP. METAB OLIC PANEL (14) creatinine 0.80 mg/dL 0.76-1 .27 Not Available [facility] ([facility]) [address] [place], [address], 08/06/2023 10:15:44 08/05/19 24 08/06/2023 COMP. METAB OLIC PANEL (14) eGFR 113 mL/mi n/1.7 3 >59 Not Available [facility] ([facility]) [address] [place], [address], 08/06/2023 10:15:44 08/05/19 24 08/06/2023 COMP. METAB OLIC PANEL (14) BUN/creatini ne ratio 16 9-20 Not Available [facility] ([facility]) [address] [place], [address], 08/06/2023 10:15:44 08/05/19 24 08/06/2023 COMP. METAB OLIC PANEL (14) sodium 138 mmol/ L 134-14 4 Not Available [facility] ([facility]) [address] [place], [address], 08/06/2023 10:15:44 08/05/19 24 08/06/2023 COMP. METAB OLIC PANEL (14) potassium 4.1 mmol/ L 3.5-5. 2 Not Available [facility] ([facility]) [address] [facility] [place], [address], 08/06/2023 10:15:44 08/05/19 24 08/06/2023 COMP. METAB OLIC PANEL (14) chloride 103 mmol/ L 96-106 Not Available [facility] ([facility]) [address] [place], [address], 08/06/2023 10:15:44 08/05/19 24 08/06/2023 COMP. METAB OLIC PANEL (14) carbon dioxide, total 23 mmol/ L 20-29 Not Available [facility] ([facility]) [address] [place], [address], 08/06/2023 10:15:44 08/05/19 24 08/06/2023 COMP. METAB OLIC PANEL (14) calcium 9.4 mg/dL 8.7-10 .2 Not Available [facility] ([facility]) [address] [place], [address], 08/06/2023 10:15:44 08/05/19 24 08/06/2023 COMP. METAB OLIC PANEL (14) protein, total 7.0 g/dL 6.0-8. 5 Not Available [facility] ([facility]) [address] [place], [address], 08/06/2023 10:15:44 08/05/19 24 08/06/2023 COMP. METAB OLIC PANEL (14) albumin 4.5 g/dL 4.1-5. 1 Not Available [facility] ([facility]) [address] [place], [address], 08/06/2023 10:15:44 08/05/19 24 08/06/2023 COMP. METAB OLIC PANEL (14) globulin, total 2.5 g/dL 1.5-4. 5 Not Available [facility] ([facility]) [address] [place], [address], 08/06/2023 10:15:44 08/05/19 24 08/06/2023 COMP. METAB OLIC PANEL (14) A/G ratio 1.8 1.2-2. 2 Not Available [facility] ([facility]) [address] [facility], [place], [address], 08/06/2023 10:15:44 08/05/19 24 08/06/2023 COMP. METAB OLIC PANEL (14) bilirubin, total 0.3 mg/dL 0.0-1. 2 Not Available [facility] ([facility]) [address] [facility], [place], [address], 08/06/2023 10:15:44 08/05/19 24 08/06/2023 COMP. METAB OLIC PANEL (14) alkaline phosphatase 76 IU/L 44-121 Not Available [facility] ([facility]) [address] [facility], [place], [address], 08/06/2023 10:15:44 08/05/19 24 08/06/2023 COMP. METAB OLIC PANEL (14) AST (SGOT) 22 IU/L 0-40 Not Available [facility] ([facility]) [address] [facility], [place], [address], 08/06/2023 10:15:44 08/05/19 24 08/06/2023 COMP. METAB OLIC PANEL (14) ALT (SGPT) 43 IU/L 0-44 Not Available [facility] ([facility]) [address] [facility], [place], [address], 08/06/2023 10:15:44 08/05/19 24 08/06/2023 CBC WITH DIFFE RENTI AL/PL ATELE T WBC 4.5 x10e3 /uL 3.4-10 .8 Not Available [facility] ([facility]) [address] [facility], [place], [address], 08/06/2023 10:15:44 08/05/19 24 08/06/2023 CBC WITH DIFFE RENTI AL/PL ATELE T RBC 5.10 x10e6 /uL 4.14-5 .80 Not Available [facility] ([facility]) [address] [facility], [place], [address], 08/06/2023 10:15:44 08/05/19 24 08/06/2023 CBC WITH DIFFE RENTI AL/PL ATELE T hemoglobin 14.9 g/dL 13.0-1 7.7 Not Available [facility] ([facility]) [address] [facility], [place], [address], 08/06/2023 10:15:44 08/05/19 24 08/06/2023 CBC WITH DIFFE RENTI AL/PL ATELE T hematocrit 45.5 % 37.5-5 1.0 Not Available [facility] ([facility]) [address] [facility], [place], [address], 08/06/2023 10:15:44 08/05/19 24 08/06/2023 CBC WITH DIFFE RENTI AL/PL ATELE T MCV 89 fL 79-97 Not Available [facility] ([facility]) [address] [place], [address], 08/06/2023 10:15:44 08/05/19 24 08/06/2023 CBC WITH DIFFE RENTI AL/PL ATELE T MCH 29.2 pg 26.6-3 3.0 Not Available [facility] ([facility]) [address] [place], [address], 08/06/2023 10:15:44 08/05/19 24 08/06/2023 CBC WITH DIFFE RENTI AL/PL ATELE T MCHC 32.7 g/dL 31.5-3 5.7 Not Available [facility] ([facility]) [address] [place], [address], 08/06/2023 10:15:44 08/05/19 24 08/06/2023 CBC WITH DIFFE RENTI AL/PL ATELE T RDW 12.5 % 11.6-1 5.4 Not Available [facility] ([facility]) [address] [facility], [place], [address], 08/06/2023 10:15:44 08/05/19 24 08/06/2023 CBC WITH DIFFE RENTI AL/PL ATELE T platelets 254 x10e3 /uL 150-45 0 Not Available [facility] ([facility]) [address] [facility], [place], [address], 08/06/2023 10:15:44 08/05/19 24 08/06/2023 CBC WITH DIFFE RENTI AL/PL ATELE T neutrophils 55 % notest ab. Not Available [facility] ([facility]) [address] [facility], [place], [address], 08/06/2023 10:15:44 08/05/19 24 08/06/2023 CBC WITH DIFFE RENTI AL/PL ATELE T lymphs 36 % notest ab. Not Available [facility] ([facility]) [address] [facility], [place], [address], 08/06/2023 10:15:44 08/05/19 24 08/06/2023 CBC WITH DIFFE RENTI AL/PL ATELE T monocytes 7 % notest ab. Not Available [facility] ([facility]) [address] [facility], [place], [address], 08/06/2023 10:15:44 08/05/19 24 08/06/2023 CBC WITH DIFFE RENTI AL/PL ATELE T eos 2 % notest ab. Not Available [facility] ([facility]) [address] [facility], [place], [address], 08/06/2023 10:15:44 08/05/19 24 08/06/2023 CBC WITH DIFFE RENTI AL/PL ATELE T basos 0 % notest ab. Not Available [facility] ([facility]) [address] [facility], [place], [address], 08/06/2023 10:15:44 08/05/19 24 08/06/2023 CBC WITH DIFFE RENTI AL/PL ATELE T neutrophils (absolute) 2.5 x10e3 /uL 1.4-7. 0 Not Available [facility] ([facility]) [address] [facility], [place], [address], 08/06/2023 10:15:44 08/05/19 24 08/06/2023 CBC WITH DIFFE RENTI AL/PL ATELE T lymphs (absolute) 1.6 x10e3 /uL 0.7-3. 1 Not Available [facility] ([facility]) [address] [facility], [place], [address], 08/06/2023 10:15:44 08/05/19 24 08/06/2023 CBC WITH DIFFE RENTI AL/PL ATELE T monocytes(ab solute) 0.3 x10e3 /uL 0.1-0. 9 Not Available [facility] ([facility]) [address] [facility], [place], [address], 08/06/2023 10:15:44 08/05/19 24 08/06/2023 CBC WITH DIFFE RENTI AL/PL ATELE T eos (absolute) 0.1 x10e3 /uL 0.0-0. 4 Not Available [facility] ([facility]) [address] [place], [address], 08/06/2023 10:15:44 08/05/19 24 08/06/2023 CBC WITH DIFFE RENTI AL/PL ATELE T baso (absolute) 0.0 x10e3 /uL 0.0-0. 2 Not Available [facility] ([facility]) [address] [facility], [place], [address], 08/06/2023 10:15:44 08/05/19 24 08/06/2023 CBC WITH DIFFE RENTI AL/PL ATELE T immature granulocytes 0 % notest ab. Not Available [facility] ([facility]) [address] [place], [address], 08/06/2023 10:15:44 08/05/19 24 08/06/2023 CBC WITH DIFFE RENTI AL/PL ATELE T immature grans (abs) 0.0 x10e3 /uL 0.0-0. 1 Not Available [facility] ([facility]) [address] [facility], [place], [address], 08/06/2023 10:15:44 08/05/19 24 08/06/2023 TSH+F REE T4 TSH 1.590 uIU/m L 0.450- 4.500 Not Available [facility] ([facility]) [address] [place], [address], 08/06/2023 11:15:18 08/05/19 24 08/06/2023 TSH+F REE T4 T4,free(dire ct) 1.31 NG/dL 0.82-1 .77 Not Available [facility] ([facility]) [address] [place], [address], 08/06/2023 11:15:18 08/05/19 24 08/06/2023 HEMOG LOBIN A1C hemoglobin A1C 6.0 % 4.8-5. 6 above high normal Predi abete s: 5.7 - 6.4 Diabe fatmata: >6.4 Glyce devorah contr ol for adult s with diabe fatmata: <7.0 Not Available [facility] ([facility]) [address] [place], [address], 08/06/2023 11:15:19 Result Notes None recorded. Problems Name Problem SNOMED Code Status Onset Date Resolution Date Notes Provider Name and Address Organization Details Recorded Time Hypertensive disorder 50776384 Active 2023 Ameena Sheppard MA [facility], [place] - [facility] 09:08:37 Problem Notes None recorded. Medical Equipment None Reported. Allergies No known drug allergies Medications Name Sig Start Date Stop Date Status Note LastModified by Organization Details LastModified Time cyclobenzap rine 10 mg tablet 03/27 completed Not Available Not Available Not Available sildenafil 50 mg tablet TAKE 1 TABLET BY MOUTH NEEDED 30 MINUTES-4 HOURS BEFORE INTERCOUR SE active Not Available Not Available No t Available ofloxacin 0.3 % eye drops INSTILL 5 DROPS INTO LEFT EAR TWICE DAILY FOR 7 DAY 03/12 completed Not Available Not Available Not Available hydrocodone 5 mg-acetamin ophen 325 mg tablet 03/27 completed Not Available Not Available Not Available hydrocortis one 1 % topical ointment APPLY THIN LAYER EXTERNALL Y TWICE DAILY FOR 14 DAYS 12/01 completed Not Available Not Available Not Available lisinopril 20 mg tablet Take 1 tablet every day by oral route in the morning for 90 days, for high blood pressure. 2024 active Not Available Not Available Not Avai lable acetaminoph en 300 mg-codeine 30 mg tablet TAKE 1 TABLET BY MOUTH EVERY 4 TO 6 HOURS NEEDED 03/12 completed Not Available Not Available Not Available tramadol 50 mg tablet TAKE 1 TABLET BY MOUTH EVERY 4 HOURS NEEDED FOR PAIN 08/04 completed Not Available Not Available Not Available acetaminoph en 500 mg tablet Take 2 tablets every 6-8 hours by oral route as needed for 14 days, for R arm pain. 2023 active Not Available Not Available Not Avai lable sildenafil 100 mg tablet Take 1 tablet every day by oral route. 03/27 completed Not Available Not Available Not Available oxycodone-a cetaminophe n 5 mg-325 mg tablet TAKE 1/2 TO 1 (ONE-HALF TO ONE) TABLET BY MOUTH EVERY 4 HOURS NEEDED FOR PAIN 08/04 completed Not Available Not Available Not Available ofloxacin 0.3 % ear drops INSTILL 10 DROPS INTO RIGHT EAR ONCE PER DAY 11/06 completed Not Available Not Available Not Available amoxicillin 875 mg tablet Take 1 tablet every 12 hours by oral route with meals for 7 days. 08/07 completed Not Available Not Available Not Available ciprofloxac in 0.3 % eye drops INSTILL 2 drops in both ears 3 times a day. 10/29 completed Not Available Not Available Not Available cephalexin 500 mg capsule Take 1 capsule twice a day by oral route for 10 days. 11/06 completed Not Available Not Available Not Available lisinopril 10 mg tablet Take 1 tablet every day by oral route. 06/14 completed Not Available Not Available Not Available gabapentin 300 mg capsule 03/27 completed Not Available Not Available Not Available Vitamin D2 1,250 mcg (50,000 unit) capsule Take 1 capsule every week by oral route. 03/12 completed Not Available Not Available Not Available fluticasone propionate 50 mcg/actuati on nasal spray,suspe nsion [place] 1 spray every day by intranasa l route. 03/27 completed Not Available Not Available Not Available clotrimazol e 1 % topical cream APPLY CREAM TOPICALLY TO AFFECTED AREA TWICE DAILY IN THE MORNING AND IN THE EVENING 08/04 completed Not Available Not Available Not Available oxycodone 5 mg tablet 03/27 completed Not Available Not Available Not Available Ciprodex 0.3 %-0.1 % ear drops,suspe nsion INSTILL 4 DROPS INTO AFFECTED EAR(S) BY OTIC ROUTE 2 TIMES PER DAY FOR 7 DAYS 11/06 completed Not Available Not Available Not Available Eliquis 2.5 mg tablet 03/27 completed Not Available Not Available Not Available Vitals Date Recorded Body height Body mass index (BMI) Body weight Oxygen saturation Oxygen saturation in Arterial blood by Pulse oximetry Heart rate Respiratory rate Systolic blood pressure Diastolic blood pressure Provider Name and Address Organization Details Last Updated DateTime 4 180.34 cm 36.8 kg/m2 159659. 39 g 99 % 99 % 80 /min 16 /min 140 mm[Hg] 91 mm[Hg] Ameena Sheppard MA [place] - [facility] 4 09:07:46 Date Recorded Body height Body mass index (BMI) Body weight Oxygen saturation Oxygen saturation in Arterial blood by Pulse oximetry Heart rate Respiratory rate Body temperature Systolic blood pressure Diastolic blood pressure Provider Name and Address Organization Details Last Updated DateTime 3 180.34 cm 36.7 kg/m2 721562. 19 g 98 % 98 % 73 /min 16 /min 98.7 [degF] 142 mm[Hg] 94 mm[Hg] Shanna Alas CMA [facility] 3 12:05:29 Date Recorded Body height Body mass index (BMI) Body weight Heart rate Oxygen saturation Oxygen saturation in Arterial blood by Pulse oximetry Systolic blood pressure Diastolic blood pressure Provider Name and Address Organization Details Last Updated DateTime 5 180.34 cm 37.5 kg/m2 913179. 35 g 59 /min 98 % 98 % 131 mm[Hg] 83 mm[Hg] Luba Donovan MA [facility] 5 09:11:14 Date Recorded Respiratory rate Provider Name a nm Address Organization Details Last Updated DateTime 12/02/2023 18 /min DELANEY RAMIREZ Attn: [address]ing,[address] [place], [address], [facility] 12/03/2023 14:43:42 Date Recorded Body height Body mass index (BMI) Body weight Heart rate Oxygen saturation Oxygen saturation in Arterial blood by Pulse oximetry Systolic blood pressure Diastolic blood pressure Provider Name and Address Organization Details Last Updated DateTime 4 180.34 cm 36.7 kg/m2 188200. 79 g 79 /min 99 % 99 % 154 mm[Hg] 91 mm[Hg] Luba Donovan MA [facility] 4 08:49:56 Date Recorded Systolic blood pressure Diastolic blood pressure Provider Name and Address Organization Details Last Updated DateTime 03/12/2022 140 mm[Hg] 100 mm[Hg] DELANEY RAMIREZ Attn: Accounting[address] [place], [address], [facility] 03/13/2022 10:46:15 Date Recorded Body height Body mass index (BMI) Body weight Respiratory rate Oxygen saturation Oxygen saturation in Arterial blood by Pulse oximetry Heart rate Body temperature Systolic blood pressure Diastolic blood pressure Provider Name and Address Organization Details Last Updated DateTime 2 180.34 cm 36.7 kg/m2 730721. 19 g 18 /min 97 % 97 % 87 /min 98 [degF] 162 mm[Hg] 100 mm[Hg] Shanna Alas CMA [facility] 2 14:26:03 Social History Question Answer Notes LastModified by Organizat ion Details LastModified Time Tobacco Smoking Status Never Smoker Shanna Bishop, [employer] null, [place] - [facility] 06/17/2017 17:13:10 Do You Have An Advance Directive? No Information not available 03/27/2020 What Is Your Level Of Caffeine Consumption? None Information not available 03/27/2020 How Much Tobacco Do You Chew? None Information not available 03/27/2020 Which Illicit Or Recreational Drugs Have You Used? None Information not available 03/27/2020 Education 12 Information no t available 03/27/2020 Hard Of Hearing Or Deaf In One Or Both Ears? No Information not available 03/27/2020 Legally Blind In One Or Both Eyes? No Does Wear Glasses Information not available 03/27/2020 Live Alone Or With Others? With Others Children Information not available 03/27/2020 What Was The Date Of Your Most Recent Tobacco Screening? 09/27/2024 Information not available 09/27/2024 How Many Children Do You Have? 4 Information not available 03/27/2020 At What Age Did You Start Smoking Tobacco? 0 N/a Information not available 03/27/2020 Are You Passively Exposed To Smoke? No Information not available 03/27/2020 How Much Tobacco Do You Smoke? No Information not available 03/27/2020 General Stress Level Low Information not available 03/27/2020 On What Date Was Tobacco Cessation Counseling Provided? 09/27/2024 Information not available 09/27/2024 How Many Years Have You Smoked Tobacco? 0 Information not available 03/27/2020 Sex: Male Functional Status Question Answer Note LastModified by Organizat ion Details LastModified Time What is your level of alcohol consumption? Occasional Information not available 03/27/2020 Do you or have you ever used smokeless tobacco? Never used smokeless tobacco Information not available 03/27/2020 Are you currently employed? Yes Information not available 03/27/2020 Are you able to care for yourself? 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 Never used electronic cigarettes Information not available 03/27/2020 Mental Status None recorded. Family History Nothing Reported. Medical History Condition Response Coronary Artery Disease N Other N Atrial Fibrillation N High Blood Pressure N Thyroid Problems N Kidney or Bladder Problems N GI Problems N Depression N COPD N Blood Clots N Eating Disorder N Skin Problems N Anemia N Heart Attack (MS) N Anxiety Disorder N Diabetes N Muscle, Joint, or Bone Problems N Seizures/Epilepsy N Acid Reflux (GERD) N Cancer N Stroke N Asthma N Allergies N ADHD N Substance Abuse N High Cholesterol N Hepatitis N Liver Disease N Schizophrenia N Headaches N Heart Failure N Osteoporosis N Immunizations Vaccine Type Date Status Note Provider Nam e and Address Organization Details Recorded Time COVID-19, mRNA, LNP-S, PF, 30 mcg/0.3 mL dose 06/15/2020 completed Not Available [facility] 03/2024 09:03:16 COVID-19, mRNA, LNP-S, PF, 30 mcg/0.3 mL dose 08/17/2020 completed Not Available [facility] 03/2024 09:03:16 COVID-19, mRNA, LNP-S, PF, 30 mcg/0.3 mL dose 04/08/2021 completed Not Available [facility] 03/2024 09:03:16 COVID-19, mRNA, LNP-S, PF, 50 mcg/0.5 mL 04/15/2024 completed Not Available [facility] 09:03:16 MMR 04/15/2024 completed Not Available [facility] 09/27/2024 09:03:16 Influenza, split virus, trivalent, PF 04/15/2024 completed Not Available [facility] 2024 09:03:16 Hep B, adult 04/15/2024 completed Not Available [facility] 09/27/2024 09:03:16 IPV 04/15/2024 completed Not Available [facility] 09/27/2024 09:03:16 varicella 04/15/2024 completed Not Available [facility] 09/27/2024 09:03:16 Tdap 04/15/2024 completed Not Available [facility] 09/27/2024 09:03:16 Influenza, split virus, quadrivalent, PF 12/25/2016 completed Not Available [facility] 0 02:34:19 Past Encounters Encounter ID Performer Location Encounter Start Date Encounter Closed Date Diagnosis/Indication Diagnosis SNOMED-CT Code Diagnosis ICD10 Code Diagnosis Note [id number] EMILIANO Dawson NP [facility] [address] [place] [address] 12/25/2016 14:58:06 12/26/2016 11:57:22 Family history of diabetes mellitus 850014301 Z83.3 Obesity 365220423 E66.9 Otitis externa 5056568 H 60.91 Active or passive immunization 336643008 Z23 Hypertensive disorder 38 047850 I10 [id number] EMILIANO Dawson NP [facility] [address] [place] [address] 06/17/2017 17:00:21 06/18/2017 17:47:51 Essential hypertension 08548727 I10 Restart lisinopril 10 mg po daily. F/u 1 month Primary er ectile dysfunction 239854732 N52.9 When BP under control, will consider viagra. Discussed use of lubricant [id number] EMILIANO Dawson NP [facility] [address] [place] [address] 07/20/2017 17:07:14 07/22/2017 09:33:58 Essential hypertension 94562854 I10 Continue lisinopril . F/u 6 months or sooner if needed. [id number] EMILIANO Dawson NP [facility] [address] [place] [address] 10/27/2017 16:06:42 10/28/2017 12:54:42 Otitis externa 3096170 H60.91 -Start oral antibiotic s-Start ciprodex ear drops-F/u 2 weeks for re-evaluat ion [id number] EMILIANO Dawson NP [facility] [address] [place] [address] 11/06/2017 16:46:20 11/10/2017 15:27:29 Otitis externa 7356089 H60.91 -Resolving -F/u prn [id number] Kesha Cheema MD [facility] [address] [place] [address] 06/14/2018 11:35:09 06/21/2018 08:57:50 Acute tonsillitis 00682666 J03.90 Allergic rhinitis 871429 04 J30.9 Bereavement 95294236 Z63 .4 Patient states he has supportive friends and family. Denies suicidal or homicidal ideation. [id number] Kesha Cheema MD [facility] [address] [place] [address] 10/29/2018 17:00:04 11/01/2018 09:46:28 Acute sinusitis 52484058 J01.90 Complainin g of erectile dysfunction 693096608 N52.9 discussed how to take medication effectivel y. [id number] Kesha Cheema MD [facility] [address] [place] [address] 03/27/2020 09:03:33 03/29/2020 15:08:20 Complaining of erectile dysfunction 764171619 N52.9 discussed how to take medication effectivel y. Vitamin D deficiency 347 01970 E55.9 [id number] Dat bill MD [facility] [address] [place] [address] 03/12/2022 14:15:59 03/13/2022 14:03:56 Erectile dysfunction 564243280 F52.21 refill sildenafil , advised of ADR Essential hypertension 03484827 I10 140/100, 160/100h/o HTNstart lisinopril 20f/u in 1 wk for BP check Acute left otitis media 355625555 H66.92 c/o bilateral ear painPEx- bilateral middle ear fluid, L TM bulging and erythemato usstart amox for 7 days Obesity 055453020 E66.9 routine labsdiscus sed increasing exercise and healthier food options, high protein, low fat diet Viral pharyngitis 778272 7 B34.9 sore throat x4 daysusing cough dropsno fevers or coughPEx- nlreassure d ptmost likely viraltrial NSAIDs, warm lemon honey tea, warm salt water gargles Depression screening 171 605183 Z13.31 PHQ 0 [id number] Dat bill MD [facility] [address] [place] [address] 08/07/2022 11:56:48 08/07/2022 12:50:30 Essential hypertension 86747746 I10 08/07/22:BP in office 142/94has not been taking his BP medication discussed medication compliance with patient 03/12/22:1 40/100, 160/100h/o HTNstart lisinopril 20f/u in 1 wk for BP check Venereal d isease screening 085510873 Z11.3 excoriatio n and redness to glans penissexua lly active with wifedenies other partners, no penile discharge or lesionsSTD screen Balanitis 54475702 N48.1 x6 monthsitch ing, irritation , pain with intercours ePEx- uncircumci sed, circular areas of excoriatio n, erythema and clear discharge to glans penistrial anti-funga l cream x10 days, if no relief trial hydrocorti sone, if not relief, refer to urologyc/w proper hygiene and cleaning foreskin Chronic ankle pain 69707 28436 9109 M25.579 M25.571 surgery with plate and screws 4 yrs agoworseni ng pain x4 months, fell and rolled R anklesharp pain to outside of R ankle, worse in the morningno meds for symptomsPE x- FROM of R ankle joint, no edema, well healed vertical surgical scars to anterior cabrera, 6 inches (length), 2.5 inches (length) and 1.5 inches (length)ta ke NSAIDs daily for painc/w working on ROMrefer to PT Circumcisi on requested 212302717 Z41.2 will send referral Obesity 939643822 E66.9 routine labsdiscus sed increasing exercise and healthier food options, high protein, low fat diet [id number] Dat bill MD [facility] [address] [place] [address] 08/05/2023 09:03:29 08/05/2023 09:34:11 Essential hypertension 31081120 I10 08/05/23: BP 140/91ran out of lisinopril 2 weeks agorefill providedf/ u in 6 mo for bp check 08/07/22:BP in office 142/94has not been taking his BP medication discussed medication compliance with patient 03/12/22:1 40/100, 160/100h/o HTNstart lisinopril 20f/u in 1 wk for BP check Chronic ankle pain 23989 44337 9109 M25.579 M25.571 08/05/23: pt did not go to PT due to the locationst ill c/o pain that is worse w/ activityne w PT referral providedco ntinue NSAIDs for pain 08/07/22:laboy rgery with plate and screws 4 yrs agoworseni ng pain x4 months, fell and rolled R anklesharp pain to outside of R ankle, worse in the morningno meds for symptomsPE x- FROM of R ankle joint, no edema, well healed vertical surgical scars to anterior cabrera, 6 inches (length), 2.5 inches (length) and 1.5 inches (length)ta ke NSAIDs daily for painc/w working on ROMrefer to PT Jennifer [id number] N48.1 08/05/23: still c/o scratching and irritation with using lubricatio n and clotrimazo lewill trial hydrocorti nimo, if no relief will refer to urology 08/07/22:x6 monthsitch ing, irritation , pain with intercours ePEx- uncircumci sed, circular areas of excoriatio n, erythema and clear discharge to glans penistrial anti-funga l cream x10 days, if no relief trial hydrocorti sone, if not relief, refer to urologyc/w proper hygiene and cleaning foreskin Depression screening 171 633695 Z13.31 PHQ 0 Erectile dysfunction 860 371383 F52.21 refill sildenafil , advised of ADR Obesity 202047978 E66.9 routine labsdiscus sed increasing exercise and healthier food options, high protein, low fat diet [id number] Nico Osman MD [facility] [address] [place] [address] 12/02/2023 08:44:51 12/02/2023 09:28:32 Lateral epicondylitis of right humerus 6555539413 30973 M77.11 x1 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 with carrying light weight objectshas not taken any meds for sxPEx- FROM R elbow joint with passive and active resistance flexion/ex tension/pr onation/laboy pinationdi scussed management and treatmenta void using R arm if possible, elbow band, naproxen daily for 2 wksf/u if sx do not improve Essential hypertension 44820158 I10 12/02/23: BP 154/91, ran out of BP meds, advised pt he has refills 08/05/23: BP 140/91ran out of lisinopril 2 weeks agorefill providedf/ u in 6 mo for bp check 08/07/22:BP in office 142/94has not been taking his BP medication discussed medication compliance with patient 03/12/22:1 40/100, 160/100h/o HTNstart lisinopril 20f/u in 1 wk for BP check Jennifer [id number] N48.1 12/02/23: no relief with rosa isela suero, requesting urology referral 08/05/23: still c/o scratching and irritation with using lubricatio n and clotrimazo lewill trial hydrocortmary suero, if no relief will refer to urology 08/07/22:x6 monthsitch ing, irritation , pain with intercours ePEx- uncircumci sed, circular areas of excoriatio n, erythema and clear discharge to glans penistrial anti-funga l cream x10 days, if no relief trial hydrocorti nimo, if not relief, refer to urologyc/w proper hygiene and cleaning foreskin Depression screening 171 021651 Z13.31 PHQ 0 [id number] Nico Osman MD [facility] [address] [place] [address] 09/27/2024 09:02:01 09/27/2024 14:49:41 Neck pain 77021030 M54.2 neck pain only when looking up x 6 days without any mechanism of injury.. Pain on palpation over C7. Normal upper extremity strength. Normal range of movement of neck. Obtain x-ray at this time. Patient is advised to go to the ER if he develops worst headache of his life, worse neck pain of his life, imbalance. has seen chiropract or and it did not help. Essential hypertension 53005380 I10 We will send refills today and obtain lab work. Patient is fasting at this time. Advised to check BP regularly with a goal of <140/90, if BP consistent ly >140/90, advised to contact clinic Discussed DASH diet Advised weight loss and diet is best way to control BP Advised 30 minutes of exercise minimum daily Advised tobacco, alcohol, caffeine all increase BP Patient is advised to go to the emergency room if they develop weakness, worst COHEN of their life, chest pain, shortness of breath. Obese class II 466133745 1 20452 E66.812 bmi 37.5Patien t is advised to cut back on tortillas and chips. He states he does not drink much soda and only drinks sugar free sodas or Gatorade. Screening for malignant neoplasm of colon 541533037 Z12.11 Agrees to Cologuard at this time. Denies family history of colon cancer or any changes in his own stool. Health Concerns Section Related Observation LastModified by Organization Detai ls LastModified Time None Recorded Concern Status LastModified by Organization Details LastModified Time None Recorded Advance Directives Directive N: Payers Insurance Date Sequence Insurance Name Policy Number Policy Hackett Covered Member ID Hackett Member ID Guarantor Name 03/12/2022 SLIDING FEE SCHEDULE - DISCOUNT Mich Leach 12/02/2023 1 [facility] [id number] Mich Leach [id number] Mich Leach 09/27/2024 [facility] (MEDICAID HMO) [id number] Mich Hany [id number] Mich Leach 12/02/2023 1 [facility] (MEDICAID HMO) [id number] Mich Leach [id number] Mich Leach 09/27/2024 SLIDING FEE SCHEDULE - DISCOUNT Mich Leach 12/02/2023 1 [place] Mich Leach [id number] Mich Leach 09/27/2024 1 [place] Mich Leach [id number] Mich Leach 12/02/2023 1 [employer] [facility] [id number] Mich Leach [id number] Mich Leach 08/07/2022 1 *SELF PAY* Bi dana Leach Notes Date Note Type Note Provider Name and Address Organization Details Recorded Time 03/12/2022 text/html Pt presents to establish care as a new patient. C/o bilateral ear pain and sore throat x4 days. States that his kids were sick with the flu last week. He has been using cough drops w/o relief. Denies fever, chills, chest pain, SOB, congestion, rhinorrhea, body aches, sinus tenderness, n/v/d, abd pain, dizziness, weakness, or headaches. DELANEY RAMIREZ Attn: Accounting,[address] [place], [address], [facility] 03/13/2022 10:48:37 08/07/2022 text/html Pt presents with R ankle pain x4 months. Reports he had Right ankle surgery 4 yrs ago, 1 plate and 11 screws from falling off a ladder. States that he always has pain, but has worsened since he fell and rolled his R ankle 4 months ago. Describes pain as sharp, located on the outside of R ankle, worse in the morning when he wakes up. Pt wears compression stockings. Has not taken any medications for his pain.C/o itching, irritation, and redness to his penis x6 months. Reports he is uncircumcised and it's painful to have intercourse due to irritation on the top of his penis. He is constantly itching. States that he tries to keep his foreskin clean. Pt has applied vaseline and neosporin to area w/o relief. Requesting referral for circumcision.Pt has not been taking his blood pressure medication consistently. DELANEY RAMIREZ Attn: Accounting,[address] [place], [address], [facility] 08/07/2022 14:08:35 08/05/2023 text/html Genaro is a 42 y /o M here for a HTN f/u and med refills.He ran out of lisinopril 2 weeks ago. Pt does not check his blood pressure at home.C/o irritation, dryness and cuts to the foreskin on his penis. He has tried using lubricant and clotrimazole with some relief. He denies any erythema, warmth, or burning with urination.He states he did not go to PT for his R ankle because it is too far. He would like a new referral that is closer. Denies any fever, nausea, vomiting, chest pain, SOB, dizziness, headaches. DELANEY RAMIREZ Attn: Accounting,[address] [facility], [place], [address], [facility] 08/05/2023 12:47:22 12/02/2023 text/html Pt presents for R elbow pain x1 mo. 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 Denies any trauma or injury. C/o sharp pain to R elbow, worse with light weight items and has difficulty picking up tools at work. He has not taken any OTC meds for his symptoms. DELANEY RAMIREZ Attn: Accounting,[address] [facility], [place], [address], [facility] 12/03/2023 14:44:40 09/27/2024 text/html here for neck pa in x 6 days He states about 6 days ago he noticed he had pain at the base of his skull and down his neck when he looks up and when he yawns. He does not have headache at any other time. He has gone to the chiropractor without any help. Tylenol helps. He denies any neck injury including falls or past traumas. He also denies numbness or tingling down his hands or any weakness. he also denies saddle anesthesia, changes in balance, or bowel or urine incontinence. He is also 44 and agrees to do Cologuard. Denies family history of colon cancer and a personal history of bloody stools, dark stools, or changes in bowel movements. On chart review he has had elevated cholesterol and prediabetes in the past and also hypertension. He has not had lab work for about a year and agrees to have it done today. Patient is fasting at this time. He also ran out of his lisinopril and needs refills today. DELANEY MCDANIEL Attn: Accounting,[address] [facility], [place], [address], [facility] 09/27/2024 14:14:25
--- OUTSIDE RECORDS SUMMARY | 2024-09-28 08:34 | XMS_ITS | Clinical Summary ---
Author Organization [facility] Address [address] [place] [address] Care Team Providers Care Administration Internship Name Role Phone Kesha Cheema MD Primary Care Provider [phone] Source Comments [facility],non-owned Affiliates and Associated Physician Practices is amultiple site organization consisting of ambulatory clinics and hospital sitesin [place], [place], [place] and [place]. This disclosure is being madepursuant to the Care Everywhere program and may not contain all information available regarding this patient. Last updated 17.[employer] Allergies No known active allergies Medications * Be aware that medications may not be up to date on this document. Alwaysverify current medications with the patient. No known medications Active Problems Problem Noted Date Diagnosed Date Vitamin D deficiency 07/04/2019 Impaired mobility 07/04/2019 Trauma 07/03/2019 Closed dislocation of right shoulder 07/03/2019 Right pulmonary contusion 07/03/2019 Closed right ankle fracture, initial encounter 0 07/03/2019 Closed displaced pilon fract ure of right tibia with routine healing Post-operative pain Pain due to any device, implant or graft Immunizations Immunization Administration Dates Next Due TDAP (7yrs+) 07/03/2019 Social History Tobacco Use Types Packs/Day Years Used Date Smoking Tobacco: Never Smokeless Tobacco: Never Alcohol Use Standard Drinks/Week Comments Yes 8 (1 standard drink = 0.6 oz pur e alcohol) Sex and Gender Information Value Date Recorded Sex Assigned at Not on file 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 Gender Identity Not on file Sexual Orientation Not on file Last Filed Vital Signs Vital Sign Reading Time Taken Comments Blood Pressure 150/97 06/17/2020 4:27 PM CDT Pulse 82 06/17/2020 9:13 PM CDT Temperature 36.8 C (98.3 F) 06/17/2020 4:27 PM CDT Respiratory Rate 18 06/17/2020 4:27 PM CDT Oxygen Saturation 98% 06/17/2020 4:27 PM CDT Inhaled Oxygen Concentration - - Weight 120.2 kg (265 lb) 07/18/2020 12:35 PM CDT Height 182.9 cm (6') 06/20/2020 4:00 PM CDT Body Mass Index 35.94 06/20/2020 4:00 PM CDT Plan of Treatment Health Maintenance Due Date Last Done Comments COLOGUARD (AGES 45-75) - COLON CA SCREENING 1979 COLON MONITORING 1979 COLONOSCOPY - COLON CA SCREENING 1979 CT COLONOGRAPHY - COLON CA SCREENING 1979 Colorectal Cancer Screening 1979 FIT - COLON CA SCREENING 1979 FLEX SIG - COLON CA SCREENING 1979 LIPID TESTING 1979 HIV SCREENING 09/16/1994 HEPATITIS C SCREENING 09/12/1997 HEPATITIS B VACCINE (1 of 3 - 19+ 3-dose series) 09/16/1998 SCREENING FOR DIABETES 06/18/2023 1, 07/27/2019, 07/26/2019, Additional history exists COVID-19 VACCINE ( - 2023- season) 2023 DEPRESSION SCREENING 03/30/2024 INFLUENZA VACCINE (Season Ended) 2024 DTAP/TDAP/TD VACCINES (2 - Td or Tdap) 07/02/2029 07/03/2019 ZOSTER VACCINE (1 of 2) 09/16/2029 HIB VACCINE Aged Out No longer eligi ble based on patient's age to complete this topic HPV VACCINE Aged Out No longer eligi ble based on patient's age to complete this topic MENINGOCOCCAL (Group B) VACCINE SHARED DECISION-MAKING Aged Out No longer eligible based on patient's age to complete this topic MENINGOCOCCAL GROUPS A/C/Y/W VACCINE Aged Out No longer eligible based on patient's age to complete this topic PNEUMOCOCCAL VACCINE Aged Out No long er eligible based on patient's age to complete this topic Medical Devices Implanted Type Area Clarifying Plant Operator Device Identifier Shelf Expiration Date Model / Serial / Lot Pin Hlf 35mm 5mm Jtx Shrt Ti Ntrd Extfix Implanted:Qty: 2 on 07/04/2019 by Samina Angeles MD at [facility] Right: Ankle [employer] Tra[employer] [id number] / / Pin Trc 50mm 5mm Jtx Shrt Ti Ntrd Implanted:Qty: 1 on 07/04/2019 by Samina Angeles MD at [facility] Right: Ankle [employer] [id number] / / Screw 3.5mm 40mm T15 Lck Lopro Slf-Tap Implanted:Qty: 1 on 07/26/2019 by Vikas Ruano MD at [facility] Right: Ankle [employer] [id number] / / Screw 2.7mm 40mm T15 Lck Slf-Tap Tip Tpr Implanted:Qty: 2 on 07/26/2019 by Vikas Ruano MD at [facility] Right: Ankle [employer] [id number] / / Screw 2.7mm 34mm Ft Hex Drv Nonlock Elb Implanted:Qty: 1 on 07/26/2019 by Vikas Ruano MD at [facility] Right: Ankle [employer] [id number] / / Screw 3.5mm 34mm Ft Nonlock Hex Drv Elb Implanted:Qty: 2 on 07/26/2019 by iVkas Ruano MD at [facility] Right: Ankle [employer] [id number] / / Screw 3.5mm 36mm Ft Slf-Tap Hex Lopro Implanted:Qty: 1 on 07/26/2019 by Vikas Ruano MD at [facility] Right: Ankle [employer] [id number] / / Graft Snth Tissue 7cc Pro-Dns Inj Rgnrt Implanted:Qty: 1 on 07/26/2019 by Vikas Ruano MD at [facility] [employer] [id number] / / Graft Snth Tissue 5cc Pro-Dns Inj Rgnrt Implanted:Qty: 1 on 07/26/2019 by Vikas Ruano MD at [facility] [employer] [id number] / / Sub Bngf Ostst Xr Pelt Injector 5cc Implanted:Qty: 1 on 07/26/2019 by Vikas Ruano MD at [facility] Right: Ankle [employer] 01/13/2027 [id number] / / [id number] Plate 12 Hl Lck Lopro Blt Tip Tib Rt Implanted:Qty: 1 on 07/26/2019 by Vikas Ruano MD at [facility] Right: Ankle [employer] [id number] / / Screw 3.5mm 38mm 2.2mm Mldir Lck Sq Drv Implanted:Qty: 1 on 07/26/2019 by Vikas Ruano MD at [facility] Right: Ankle [employer] [id number] / / Screw 3.5mm 46mm 30d 2.2mm Slf-Tap Mldir Implanted:Qty: 1 on 07/26/2019 by Vikas Ruano MD at [facility] Right: Ankle [employer] [id number] / / Screw 3.5mm 48mm 2.2mm Mldir Lck Sq Drv Implanted:Qty: 1 on 07/26/2019 by Vikas Ruano MD at [facility] Right: Ankle [employer] [id number] / / Screw 3.5mm 36mm T15 Slf-Tap Lck Lopro Implanted:Qty: 1 on 07/26/2019 by Vikas Ruano MD at [facility] Right: Ankle [employer] [id number] / / Explanted Type Area Clarifying Plant Operator Device Identifier Shelf Expiration Date Model / Serial / Lot Kwire Explanted:Qty: 1 on 07/26/2019 at [facility] Right: Ankle [employer] [id number] / / Wire K 2.5mm 150mm Troc Pnt Thrd Ss Fx Explanted:Qty: 1 on 07/26/2019 at [facility] Right: Ankle [employer] [id number] / / Procedures Procedure Name Priority Date/Time Associated Diagnosis Comments COMPREHENSIVE METABOLIC PANEL STAT 06/17/2020 6:51 PM CDT from Last 3 Months or Most Recently Relevant to Health Maintenance Results * (ABNORMAL) COMPREHENSIVE METABOLIC PANEL (06/17/2020 6:51 PM CDT) BUN 13 7 - 26 mg/dL 06/17/2020 7:28 PM [facility] Creatinine 0.8 0.6 - 1.2 mg/dL 06/17/2020 7:28 PM [facility] Sodium 142 136 - 145 mmol/L 06/17/2020 7:28 PM [facility] Potassium 4.5 3.5 - 4.5 mmol/L 06/17/2020 7:28 PM [facility] Chloride 106 98 - 107 mmol/L 06/17/2020 7:28 PM [facility] CO2 25 22 - 29 mmol/L 06/17/2020 7:28 PM [facility] Glucose 102 70 - 115 mg/dL 06/17/2020 7:28 PM [facility] Calcium 9.2 8.4 - 10.2 mg/dL 06/17/2020 7:28 PM [facility] Protein Total 7.9 6.0 - 8.3 g/dL 06/17/2020 7:28 PM [facility] Albumin 4.1 3.4 - 5.0 g/dL 06/17/2020 7:28 PM [facility] Bilirubin Total 0.4 0.2 - 1.2 mg/dL 06/17/2020 7:28 PM [facility] Alkaline Phosphatase 86 40 - 150 Units/L 06/17/2020 7:28 PM [facility] ALT 56(H) 0 - 55 Units/L 06/17/2020 7:28 PM [facility] AST 31 5 - 34 Units/L 06/17/2020 7:28 PM [facility] Anion Gap 16 8 - 18 06/17/2020 7:28 PM [facility] BUN/Creatinine Ratio 16 7 - 23 06/17/2020 7:28 PM [facility] Osmolality Calculated 294 270 - 300 mOsm/kg 06/17/2020 7:28 PM [facility] Albumin/Globulin Ratio 1.1 1.1 - 2.3 06/17/2020 7:28 PM [facility] eGFR >60 >60 mL/min/1.7 3 m2 06/17/2020 7:28 PM CDT [facility] Blood BLOOD SPECIMEN / Unknown Venipuncture / Unknown 06/17/2020 6:51 PM CDT 06/17/2020 6:58 PM CDT Anika Bashir MD LAB - CHEMISTRY ORDERABLES Final Result Performing Organization Address [facility]/State/[facility] Co de Phone Number [facility] [address] [place] [address], [facility] [phone] from Last 3 Months or Most Recently Relevant to Health Maintenance Insurance CARE Advance Directives * Full Code (Latest Code Status on File) Date Activated Date Inactivated Comments 07/26/2019 5:14 PM 07/28/2019 5:07 PM * Full Code Date Activated Date Inactivated Comments 07/26/2019 2:38 PM 07/26/2019 5:14 PM * Full Code Date Activated Date Inactivated Comments 07/03/2019 8:05 PM 07/05/2019 5:54 PM Care Teams Administration Internship Relationship Specialty Start Date End Date Kesha Cheema MD PCP - General 04/03/16
--- OUTSIDE RECORDS SUMMARY | 2024-09-28 08:34 | XMS_ITS | Clinical Summary ---
Author Organization [facility] Address [address] [place] [address] Care Team Providers Care Financial Rep Name Role Phone Unavailable Primary Care Provider Unavailabl e Social History Tobacco Use Types Packs/Day Years Used Date Smoking Tobacco: Never Assessed Sex and Gender Information Value Date Recorded Sex Assigned at Not on file Legal Sex Male 7:17 PM CDT Gender Identity Not on file Sexual Orientation Not on file Plan of Treatment Health Maintenance Due Date Last Done Comments Colorectal Cancer Screening Colonoscopy (10 Years) 1979 Annual Physical 09/16/1982 Hepatitis C 09/16/1997 DTaP, Tdap and Td Vaccines ( 1 - Tdap) 09/16/1998 Hepatitis B Vaccines (1 of 3 - 19+ 3-dose series) 09/16/1998 COVID-19 Vaccine (2023-2 5 season) 2023 HPV Vaccines Aged Out No longer eligi ble based on patient's age to complete this topic Meningococcal B Vaccine Aged Out No l onger eligible based on patient's age to complete this topic Meningococcal Vaccine Aged Out No navarro jamel eligible based on patient's age to complete this topic Pneumococcal Vaccine: Pediat rics (0 to 5 Years) and At-Risk Patients (6 to 49 Years) Aged Out No longer eligible b ased on patient's age to complete this topic RSV Immunizations Under 20 Months Aged Out No longer eligible based on patient's age to complete this topic
--- OUTSIDE RECORDS SUMMARY | 2024-09-28 08:34 | XMS_ITS | Continuity of Care Document ---
Author Organization [facility] Address [address] [place] [address] Care Team Providers Care Aerial Applicator Pilot Name Role Phone RENETTA DAVID Primary Care Provider Assessment Encounter Date Assessment Date Assessment LastModified by Organization Details LastModified Time 09/27/2024 09/27/2024 Follow up with Renetta as PCP is I will be leaving [facility] Not available 09/27/2024 14:14:03 Plan of Treatment Reminders Order Date Submit Date Provider Last Modified By Organization Details Last Modified Time Details Appointments ANY 15 2024 08:00A M DELANEY MCDANIEL Not available Not available Not available Lab noninvasi ve colorecta l cancer DNA + occult blood screening , QL, stool 2024 025 [email or web address] (Cologuard Orders Only), [address], [address], [place], [address], 09/27/2024 09:51:25 CMP, serum or plasma 2024 025 [place] [facility], [address], [address], [place], [address], 09/28/2024 08:28:41 CBC w/ auto diff 2024 025 [place] [facility], [address], [address], [place], [address], 09/28/2024 08:28:42 lipid panel, serum 2024 025 [place] [facility], [address], [place], [address], 09/28/2024 08:28:40 albumin/c reatinine , mass ratio, urine 2024 025 [place] [id number] [facility], [address], [place], [address], 09/27/2024 09:51:25 HbA1c (hemoglob in A1c), blood 2024 025 [place] [id number] [facility], [address], [place], [address], 09/27/2024 09:51:25 Referral None recorded. Procedures None recorded. Surgeries None recorded. Imaging XR, cervical spine, 2 or 3 view [address], [place], [address], 09/27/2024 14:49:41 Medication Orders lisinopri l 20 mg tablet [address] [facility], [address] [facility], [place], [address], 09/27/2024 09:51:25 Patient TargetsNo targets recorded. Patient Instructions Encounter Date Encounter Id Patient Instructions Last Modified By Organization Details Last Modified Time 09/27/2024 [id number] A healthy lifestyle: care instructions [place] [id number] Not available 09/27/2024 09:51:25 Reason for Referral None Reported. Problems Name Problem SNOMED Code Status Onset Date Resolution Date Notes Provider Name and Address Organization Details Recorded Time Hypertensive disorder 98189722 Active [address] [facility] 09:08:37 Problem Notes None recorded. Medical Equipment [...] propionate 50 mcg/actuati on nasal spray,suspe nsion [place] 1 spray every day by intranasa l [...] Updated DateTime 5 180.34 cm 37.5 kg/m2 611857. 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 Never used electronic cigarettes Information not available 03/27/2020 Mental Status None recorded. Family History Nothing Reported. Medical History Condition Response Coronary Artery Disease N Other N High Blood Pressure N Atrial Fibrillation N Thyroid Problems N Kidney or Bladder Problems N GI Problems N Depression N COPD N Blood Clots N Skin Problems N Eating Disorder N Anemia N Heart Attack (NM) N Anxiety Disorder N Diabetes N Muscle, [...] mcg/0.3 mL dose 06/15/2020 completed Not Available Pending sale to [facility] 03/2024 09:03:16 COVID-19, mRNA, LNP-S, PF, 30 mcg/0.3 mL dose 08/17/2020 completed Not Available [facility] 03/2024 09:03:16 COVID-19, mRNA, LNP-S, PF, 30 mcg/0.3 mL dose 04/08/2021 completed Not Available Pending sale to [facility] 03/2024 09:03:16 COVID-19, mRNA, LNP-S, PF, 50 mcg/0.5 mL 04/15/2024 completed Not Available [facility] 09:03:16 MMR 04/15/2024 completed Not Available [facility] 09/27/2024 09:03:16 Influenza, split virus, trivalent, PF 04/15/2024 completed Not Available [facility] 2024 09:03:16 Hep B, adult 04/15/2024 completed Not Available [facility] 09/27/2024 09:03:16 IPV 04/15/2024 completed Not Available [facility] 09/27/2024 09:03:16 varicella 04/15/2024 completed [facility] 09/27/2024 09:03:16 Tdap 04/15/2024 completed Not Available [facility] 09/27/2024 09:03:16 Influenza, split virus, quadrivalent, PF 12/25/2016 completed Not Available Pending sale to [facility] 02:34:19 Past Encounters Encounter ID Performer Location Encounter Start Date Encounter Closed Date Diagnosis/Indication Diagnosis SNOMED-CT Code Diagnosis ICD10 Code Diagnosis Note [id number] Nico Osman MD [facility] [address] [place] [address] 09/27/2024 09:02:01 09/27/2024 14:49:41 Neck pain 23912097 M54.2 neck pain only when looking up [...] and it did not help. Essential hypertension 17248784 I10 We will send refills today and [...] pain, shortness of breath. Obese class II 286035546 1 45777 E66.812 bmi 37.5Patien t is advised to cut back on tortillas and chips. He states he does not drink much soda and only drinks sugar free sodas or Gatorade. Screening for malignant neoplasm of colon 815699590 Z12.11 Agrees to Cologuard at this time. Denies family history of colon cancer or any changes in his own stool. Health Concerns Section Related Observation LastModified by Organization Detai ls LastModified Time None Recorded Concern Status LastModified by Organization Details LastModified Time None Recorded Payers None recorded. Notes Date Note Type Note Provider Name and Address Organization Details Recorded Time 09/27/2024 text/html here for neck pa in [...] refills today. DELANEY MCDANIEL Attn: Accounting[address] [facility], [place], [address], [facility] 09/27/2024 14:14:25
--- OUTSIDE RECORDS SUMMARY | 2024-09-28 08:35 | XMS_ITS | Clinical Summary ---
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 Gender Identity Not on file Sexual Orientation Not on file Plan of Treatment Health Maintenance Due Date Last Done Comments Hepatitis C Virus (HCV) Screening 1979 Hepatitis B Immunization (1 of 3 - 19+ 3-dose series) 09/16/1998 SARS-COV-2 Immunization ( season) 2023 04/08/2021, 08/17/2020, 06/15/2020 Influenza Immunization (Seas on Ended) 2024 12/25/2016 Respiratory Syncytial Virus (RSV) Immunization (Adult) (1 - 1-dose 75+ series) 09/16/2054 DTaP/Tdap/Td Immunization Discontinued 07/03/2019 TdaP Immunization Completed 07/03/2019 Human Papillomavirus (HPV) Immunization Aged Out No longer eligible based on patient's age to complete this topic Meningococcal Immunization (ACWY) Aged Out No longer eligible based on patient's age to complete this topic Pneumococcal Immunization Combined Aged Out No longer eligible based on patient's age to complete this topic Rotavirus Immunization Aged Out No lo nger eligible based on patient's age to complete this topic
== END 2024-09-28 08:24 | disposition home or self-care (01) ==
PROVIDERS: PCP Physician Assistant; Visit Provider Physician Assistant
DX: M54.2 Cervicalgia (principal)
CPT/HCPCS: 72040